=== PATIENT | female | born 1965 ===

== ENCOUNTER 2020-12-11 11:25 | Observation (INO) ==
[2020-12-11 12:49] LABS: Basophils % 0.3 % (0.0-0.8); Hematocrit 35.1 VOL% (35.7-47.0); Hemoglobin 11.2 GM/DL (12.0-16.0); Immature Granulocytes % 0.2 %; Immature Granulocytes Absolute 0.01 #; Lymphocytes # 1.5 10*3/uL (1.4-4.0); Lymphocytes % 24.3 % (21.3-54.2); Mean Corpuscular HGB Conc 31.9 GM/DL (32-36); Mean Corpuscular Volume 86.2 FL (87-102); Mean Platelet Volume 8.9 FL (9.6-12.0); Monocytes % 7.5 % (1.7-12.7); Neutrophils % 67.7 % (38.7-73.9); Platelet Count 170 T/CUMM (130-400); Red Blood Count 4.07 MC/CUMM (3.8-5.5); Red Cell Distribution Width 14.9 % (9.3-17.3)
[2020-12-11 13:13] LABS: Alanine Aminotransferase 69 U/L (13-56); Albumin 3.6 G/DL (3.4-5.0); Alkaline Phosphatase 85 U/L (45-117); Aspartate Amino Transferase 53 U/L (0-37); Blood Urea Nitrogen 35 MG/DL (7-18); Calcium 9.2 MG/DL (8.5-10.1); Carbon Dioxide 24 MMOL/L (21-32); Estimated Glom Filtration Rate 92 ML/MIN; Glucose 90 MG/DL (74-106); Osmolality,Calculated 301.3 MOS/KG (273-304); Potassium 3.4 MMOL/L (3.5-5.1); Sodium 148 MMOL/L (136-145); Total Protein 6.2 G/DL (6.4-8.2)
[2020-12-11 13:48] LABS: Barbiturates Screen,Urine Negative (Negative); Benzodiazepines Screen,Urine Negative (Negative); Cannabinoid Screen,Urine Negative (Negative); Opiate Screen,Urine Negative (Negative); Phencyclidine Screen,Urine Negative (Negative)
[2020-12-11] MEDS ORDERED: SODIUM CHLORIDE 0.9% 1,000 ML IV STA ×2 (14:09→16:10)
[2020-12-11 14:53] LABS: Bilirubin,Urine Negative (Negative); Blood, Urine Negative (Negative); Glucose,Urine (UA) Negative (Negative); Hyaline Casts,Urine 1 /LPF (0-3); Ketones,Urine 5 mg/dL (Negative); Mucus,Urine Few /LPF (Occasional); Nitrite,Urine Negative (Negative); Protein,Urine 30 MG/DL; RBC,Urine <1 /HPF (0-4); Urine Appearance CLEAR (Clear); Urine Color Amber (Yellow); Urine Specific Gravity 1.027 (1.001-1.035); Urine Urobilinogen < 2.0 EU/DL (0.2-1.0)
[2020-12-11] MEDS ORDERED: DEXTROSE 50% 25 GM/50 ML VIAL IV PRN (16:55)
[2020-12-11] MEDS ORDERED: ONDANSETRON 4 MG/2 ML VIAL IV PRN (16:55)
[2020-12-11] MEDS ORDERED: GLUCAGON 1 MG VIAL IM PRN (16:55)
[2020-12-11] MEDS ORDERED: ACETAMINOPHEN 325 MG TABLET PO PRN (16:55)
[2020-12-11] MEDS ORDERED: HydrOXYzine PAMOATE 25 MG CAPSULE PO PRN (17:03)
[2020-12-11] MEDS ORDERED: HALOPERIDOL 5 MG TABLET PO PRN (17:03)
[2020-12-11] MEDS ORDERED: POTASSIUM CHLORIDE 20 MEQ/15 ML UDCUP PO ONE (18:26)
[2020-12-11] MEDS: SODIUM CHLORIDE 0.45% 1,000 ML IV SCH (19:25)
[2020-12-12] MEDS ORDERED: HALOPERIDOL 5 MG/ML AMP IV PRN (04:35)
[2020-12-12] MEDS: SODIUM CHLORIDE 0.45% 1,000 ML IV SCH (04:51)
[2020-12-12] MEDS ORDERED: HALOPERIDOL 5 MG/ML AMP IM PRN (05:00)
[2020-12-12 05:34] LABS: Basophils % 0.2 % (0.0-0.8); Hematocrit 36.7 VOL% (35.7-47.0); Hemoglobin 11.5 GM/DL (12.0-16.0); Immature Granulocytes % 0.2 %; Immature Granulocytes Absolute 0.01 #; Lymphocytes # 2.4 10*3/uL (1.4-4.0); Mean Corpuscular HGB Conc 31.3 GM/DL (32-36); Mean Corpuscular Volume 88.4 FL (87-102); Mean Platelet Volume 8.7 FL (9.6-12.0); Neutrophils % 55.6 % (38.7-73.9); Platelet Count 162 T/CUMM (130-400); Red Blood Count 4.15 MC/CUMM (3.8-5.5); Red Cell Distribution Width 14.9 % (9.3-17.3); White Blood Count 6.6 T/CUMM (4-12)
[2020-12-12 06:02] LABS: Calcium 8.8 MG/DL (8.5-10.1); Osmolality,Calculated 293.4 MOS/KG (273-304); Potassium 3.6 MMOL/L (3.5-5.1)
[2020-12-12 07:56] VITALS: BP 132/89
[2020-12-12] MEDS ORDERED: FLUoxetine 20 MG CAPSULE PO SCH (09:00)
[2020-12-12] MEDS ORDERED: BENZTROPINE 1 MG TABLET PO SCH (09:00)
== END 2020-12-12 11:25 | disposition home or self-care (01) ==
LOC: N.EDINP 11:25 → N.ED 11:25 → N.EDINP 18:21 → N.4E 18:43
PROVIDERS: ADMIT Internal Medicine; ATTEND Internal Medicine